=== PATIENT | female | born 1980 | race Caucasian/White ===

== ENCOUNTER 2021-04-29 12:53 | Emergency (ER) | payer OTHER ==
[2021-04-29 14:06] LABS: HEMOGLOBIN 15.2 gm/dl (12.3-15.3); RED BLOOD COUNT 5.3 M/UL (4.00-5.10); WHITE BLOOD COUNT 11.9 K/UL (4.5-11.0)
[2021-04-29 14:30] LABS: BUN/CREATININE RATIO 15 (0-10)
== END 2021-04-29 15:35 | disposition home or self-care (01) ==
LOC: ER1 12:53
PROVIDERS: Nurse Practitioner
DX: S80.811A Abrasion, right lower leg, initial encounter (principal); E11.9 Type 2 diabetes mellitus without complications; I10 Essential (primary) hypertension; F17.210 Nicotine dependence, cigarettes, uncomplicated; Z88.1 Allergy status to other antibiotic agents; Z88.8 Allergy status to other drugs, medicaments and biological substances; V43.52XA Car driver injured in collision with other type car in traffic accident, initial encounter
CPT/HCPCS: 70450; 71260; 72125; 73090; 73590; 80053; 82550; 82553; 83874; 84484; 85025; 93005; 96374; 96375; 96376; 99284; J2270; J2405; Q9967